=== PATIENT | female | born 1955 | race American Indian/Alaskan Native ===

== ENCOUNTER 2019-05-20 12:30 | Outpatient (CLI) | payer MEDICARE ==
--- NOTE | 2019-05-20 15:10 | Mammography Report ---
BONE DEXA CLINICAL: Postmenopausal. No comparison. TECHNIQUE: 2 site bone DEXA performed on an Hologic scanner. FINDINGS: The average BMD of the lumbar spine L1-L4 is 1.253g/cm squared with a T score of +1.9 and a Z score o f +2.9. The average total BMD of the left hip is 1.012 g/cm squared with a T score of +0.6and a Z score of +0 .9. IMPRESSION: 1. WHO classification: Normal with average fracture risk based on spine measurements. 2. WHO classification Normal with average fracture risk based on left hip measurements. RECOMMENDATION: Clinical correlation and routine screening. Definitions: BMD equal bone mineral density T score = BMD related to peak bone mass of young adult ([place] expressed an standard deviation) Z score = age-matched BMD expressed in SD World health organization (WHO) diagnostic criteria Normal T score greater than equal to 1 standard deviation Osteopenia T score between -1 and -2.4 standard deviation Osteoporosis T score -2.5 standard deviation or below. Note: BMD is not the only risk factor for fracture; also consider factors such as the patient's age, risk of falling, previous osteoporotic fracture, family history of osteoporotic fractures, current sm oker and low body weight. Z scores are not calculated if greater than 80 years of age. Signer Name: Bro Canales MD Signed: 05/20/2019 3:05 PM Workstation Name: [id number]
== END 2019-05-20 12:31 | disposition home or self-care (01) ==
LOC: MAMMO 12:30
PROVIDERS: ATTEND Family Medicine
DX: Z13.820 Encounter for screening for osteoporosis (principal); Z78.0 Asymptomatic menopausal state; Z91.89 Other specified personal risk factors, not elsewhere classified
CPT/HCPCS: 77080